=== PATIENT | male | born 1950 | race Caucasian/White ===

== ENCOUNTER → 2016-02-11 | Outpatient (REF) | payer MEDICARE, OTHER ==
[~2016-02-11] MED LIST: AMLO25TA PO; ATOR40TA PO; HYZA100T6 PO; PENI250T57 PO
== END ==
LOC: M LAB REF 16:42
PROVIDERS: ATTEND Surgery
DX: L03.319 Cellulitis of trunk, unspecified (principal); A49.02 Methicillin resistant Staphylococcus aureus infection, unspecified site

== ENCOUNTER → 2016-02-19 | Outpatient (CLI) | payer MEDICARE, BC, OTHER ==
[2016-02-19 12:45] LABS: MEAN CORPUSCULAR HEMOGLOBIN 29.9 pg (27.0-33.0); MEAN CORPUSCULAR HGB CONC 34.6 g/dl (32.0-36.5); MEAN CORPUSCULAR VOLUME 86.2 fl (80.0-96.0); RED CELL DISTRIBUTION WIDTH 12.8 % (11.5-14.5); WHITE BLOOD COUNT 8.2 K/mm3 (4.0-10.0)
--- NOTE | 2016-02-19 12:50 | REP ---
Clinical: Primary hypertension and cholesterolosis . Comparison: None . Technique: PA and lateral. Findings: The mediastinum and cardiac silhouette are normal. The lung fernandez demonstrate chronic-appearing changes without acute consolidation, effusion, or pneumothorax. The skeletal structures are intact and normal. Impression: Chronic-appearing changes. No acute cardiopulmonary process. Signed by Osmel Sandhu MD 02/19/2016 12:42 P
[2016-02-19 14:16] LABS: ALBUMIN 4.2 GM/DL (3.2-5.2); ALBUMIN/GLOBULIN RATIO 1.35 (1.00-1.93); ALKALINE PHOSPHATASE 115 U/L (45-117); ALT/SGPT 64 U/L (12-78); ANION GAP 8 MEQ/L (8-16); AST/SGOT 27 U/L (15-37); BILIRUBIN,TOTAL 1.2 MG/DL (0.2-1.0); BLOOD UREA NITROGEN 19 MG/DL (7-18); CALCIUM LEVEL 9.2 MG/DL (8.8-10.2); CARBON DIOXIDE LEVEL 31 MEQ/L (21-32); CHLORIDE LEVEL 102 MEQ/L (98-107); GLOMERULAR FILTRATION RATE > 60.0 (>49); GLUCOSE, FASTING 99 MG/DL (80-110); SODIUM LEVEL 141 MEQ/L (136-145); TOTAL PROTEIN 7.3 GM/DL (6.4-8.2)
--- NOTE | 2016-02-19 17:27 | ECGEPIP ---
Stationary ECG Study [facility] Test Date: 2016-02-19 Pat Name: RENEA SCHAEFER Department: Room: - Gender: M [employer] Lead: MYRA : 1950 Requested By: Efrain Jaramillo Order Number: [id number] Reading MD: Thomas Ulloa Measurements Intervals Hubbard Rate: 61 P: 62 MO: 156 QRS: -32 QRSD: 152 T: 29 QT: 450 QTc: 456 Interpretive Statements SINUS RHYTHM RIGHT BUNDLE BRANCH BLOCK Left anterior fascicular block Comparison tracing not on file Electronically Signed On 02-19-2016 17:26:39 EST by Thomas Ulloa
== END ==
LOC: M ADMPAT 10:37
PROVIDERS: ATTEND Orthopaedic Surgery
DX: M25.562 Pain in left knee (principal); Z79.899 Other long term (current) drug therapy

== ENCOUNTER 2016-03-04 05:36 | Inpatient (IN) | payer MEDICARE, BC, OTHER ==
[2016-02-19 11:13] VITALS: BP 201/105
--- NOTE | 2016-02-25 10:26 | CR ---
DATE OF CONSULTATION: 02/25/[address] ALLEN 65-year-old white male scheduled for knee replacement. I have been asked to evaluate him medically. He recently was treated for cellulitis/paronychia of the right great toe. That has resolved. He does have a history of obstructive sleep apnea (IAM) and will bring in his C-PAP. There is no history of known coronary artery disease and exercise tolerance is good for age and would be better if it was not for his left knee. No history of deep vein thrombosis (DVT) or pulmonary embolus. His electrocardiogram shows normal sinus rhythm, left atrial enlargement, right bundle branch block, and left anterior fascicular block, which I believe is new compared to our prior which was in December 2011. His chest x-ray shows chronic disease. His laboratory work is unremarkable. MEDICATIONS: - amlodipine 5 mg a day - atorvastatin 40 mg a day - losartan/hydrochlorothiazide 12/02 PAST MEDICAL HISTORY: 1. Prostatectomy for prostate cancer. 2. Surgery on Achilles tendon, right. 3. Cataract surgery. 4. Ptosis surgery. 5. Colonic polyps with tubular adenoma, last colonoscopy 2009 was clean. 6. IAM. 7. Hypertension. 8. Hyperlipidemia. 9. Conduction abnormalities on electrocardiogram as discussed. ALLERGIES: No known allergies. SOCIAL HISTORY: No alcohol or tobacco. FAMILY HISTORY: Negative. CARDIOPULMONARY REVIEW OF SYSTEMS: Negative. PHYSICAL EXAMINATION: Blood pressure 140/80. General Appearance: Moderately overweight. HEENT was unremarkable. Neck veins are flat. Carotids are normal. No bruits. No jugular venous distention (JVD). No cervical adenopathy. Heart: Regular. No murmurs. Chest is clear. Abdomen: Obese. Otherwise unremarkable. No hernias. Extremities are warm peripherally. No clubbing, cyanosis or edema. Infection great right toe is resolved.. IMPRESSION/PLAN: 1. Hypertension. Hold antihypertensives the morning of surgery. Resume postoperative when hemodynamically stable. 2. Hyperlipidemia. Resume statin postoperatively. 3. History of colonic polyps. Last colonoscopy clean 2009, previously with tubular adenoma. 4. Obstructive sleep apnea. He will bring in his C-PAP. 5. History of prostate cancer. 6. Conduction disease on electrocardiograms as discussed. The patient is medically optimized with recommendations as above.
--- NOTE | 2016-03-02 16:26 | HPE ---
DATE OF SCHEDULED ADMISSION: 03/04/2016 CHIEF COMPLAINT: Left knee pain. HISTORY OF PRESENT ILLNESS: This is a pleasant 65-year-old male with progressively worsening left knee pain and stiffness. He has failed to improve with conservative treatment. He has elected for surgery for his continued symptoms. He has pain with weightbearing activities and his activities of daily living. X-rays of his knee are notable for advanced osteoarthritis of the left knee joint. He has consented for a left total knee arthroplasty by Dr. Efrain Jaramillo. Medical optimization was performed by Dr. Wood. ALLERGIES: None. CURRENT MEDICATIONS: - losartan/HCTZ 100/25 mg once a day PAST MEDICAL HISTORY: Hypertension. PAST SURGICAL HISTORY: Achilles tendon repair in 1972, cataract removal in 2012, arthroscopic surgery to both knees and prostatectomy in 2011. SOCIAL HISTORY: This gentleman is retired. He does not smoke and occasionally has an alcoholic beverage. FAMILY HISTORY: Noncontributory. REVIEW OF SYSTEMS: This patient denies chest pain, heart palpitations, cough, wheezing, difficulty breathing or shortness of breath. He denies abdominal pain, nausea, vomiting, diarrhea or constipation. He denies recent upper respiratory infection or urinary tract infection symptoms. He does complain of persistent pain in his left knee and pain with weightbearing activities in his left knee. PHYSICAL EXAMINATION General: He is well-nourished, well-developed, in no acute distress, adult male patient. He walks with a moderate limp favoring the left lower extremity. He is not using assistive devices. Vital signs: He is 6 feet 3 inches tall, weighs 259 pounds with a temperature of 97.7, blood pressure 166/80, pulse of 64 and respirations of 12. Neck was supple without adenopathy or jugular venous distension. There were no carotid bruits appreciated upon auscultation. Lungs were clear to auscultation without rales or wheeze throughout. Heart: Regular rate and rhythm. Abdomen: Bowel sounds were present. Extremities: Examination of the knee revealed intact skin. He had decreased range of motion secondary to pain and stiffness. The limb is neurovascularly intact. LABORATORY DATA: Chest x-ray showed chronic appearing changes. No acute cardiopulmonary disease processes. EKG showed sinus rhythm at 61 beats per minute. UA was within normal limits with a specific gravity of 1.015. Pro-time 13.3, INR 1.00. CBC was within normal limits. Sedimentation rate was 3, glucose 99, BUN 19, creatinine 1.1. Sodium 141, potassium 4.0. Urine culture showed no growth. Nasal and sinus culture showed normal charis. IMPRESSION: Symptomatic osteoarthritis of the left knee joint. PLAN: Consented for a left total knee arthroplasty by Dr. Efrain Jaramillo.
[~2016-03-04] VITALS: Ht 190.5 cm; Wt 113.0 kg
[2016-03-04] VITALS (7 sets, daily range): BP systolic 139–170; BP diastolic 72–88
[2016-03-04] MEDS ORDERED: LR 1,000 ML IV SCH ×2 (06:00→09:30)
[2016-03-04] MEDS ORDERED: COUM10TA PO (06:23)
[2016-03-04] MEDS ORDERED: MIDAZOLAM INJ 2 MG/2 ML VIAL (J2250) As Ordered ONE ×2 (06:42→08:07)
[2016-03-04] MEDS ORDERED: fentaNYL 100 MCG/2 ML INJECTION (J3010) As Ordered ONE ×2 (06:42→07:07)
[2016-03-04] MEDS ORDERED: BUPIVACAINE HCL 0.5% 10 ML VIAL As Ordered ONE (07:06)
[2016-03-04] MEDS ORDERED: TRANEXAMIC ACID 100 MG/ML 10ML VIAL As Ordered ONE (07:06)
[2016-03-04] MEDS ORDERED: EPINEPHrine INJ 1 MG/ML 1ML VIAL/AMP As Ordered ONE (07:07)
[2016-03-04] MEDS ORDERED: ceFAZolin 1GM INJ (J0690) As Ordered ONE (07:07)
[2016-03-04] MEDS ORDERED: BUPIVACAINE HCL 0.25% 30 ML VIAL As Ordered ONE (07:07)
[2016-03-04] MEDS: fentaNYL 100 MCG/2 ML INJECTION (J3010) IV PRN ×2 (07:21→07:29)
[2016-03-04] MEDS: MIDAZOLAM INJ 2 MG/2 ML VIAL (J2250) IV PRN ×2 (07:21→07:25)
[2016-03-04] MEDS ORDERED: PROPOFOL 200 MG/20 ML VIAL As Ordered ONE ×2 (08:08→09:01)
[2016-03-04] MEDS ORDERED: LIDOCAINE 2% INJ 100 MG/5 ML SDV (FOR ANES.) As Ordered ONE (08:08)
[2016-03-04] MEDS ORDERED: ONDANSETRON 4MG/2ML VIAL (J2405) As Ordered ONE (08:08)
[2016-03-04] MEDS ORDERED: ceFAZolin 1GM INJ (J0690) IR ONE (08:12)
[2016-03-04] MEDS ORDERED: EPINEPHrine INJ 1 MG/ML 1ML VIAL/AMP XX ONE (08:12)
[2016-03-04] MEDS ORDERED: BUPIVACAINE HCL 0.5% 10 ML VIAL XX ONE (08:12)
[2016-03-04] MEDS ORDERED: TRANEXAMIC ACID 100 MG/ML 10ML VIAL XX ONE (08:12)
[2016-03-04] MEDS ORDERED: fentaNYL 100 MCG/2 ML INJECTION (J3010) XX ONE (08:12)
[2016-03-04] MEDS ORDERED: BUPIVACAINE HCL 0.25% 30 ML VIAL XX ONE (08:12)
[2016-03-04] MEDS: MIRALAX *UNIT DOSE* 17GM PACKET PO SCH (09:00)
[2016-03-04] MEDS: SENOKOT S TAB PO SCH ×2 (09:00→20:37)
[2016-03-04] MEDS ORDERED: ePHEDrine SULFATE 25 MG/5 ML(5MG/ML) SYRINGE As Ordered ONE (09:01)
[2016-03-04] MEDS ORDERED: MORPHINE PCA 1MG/ML 100ML CADD As Ordered ONE (09:28)
[2016-03-04] MEDS ORDERED: PERCOCET 5MG/325MG TAB PO PRN (09:30)
[2016-03-04] MEDS ORDERED: NALOXONE INJ 0.4 MG/1 ML VIAL (J2310) IV PRN (09:30)
[2016-03-04] MEDS ORDERED: EPIDURAL/PCA KEYS XX PRN (09:30)
[2016-03-04] MEDS ORDERED: NALBUPHINE HCL 10 MG/ML AMP (J2300) IV PRN (09:30)
[2016-03-04] MEDS ORDERED: diphenhydrAMINE INJ 50MG/ML VIAL (J1200) IV PRN (09:30)
[2016-03-04] MEDS ORDERED: fentaNYL 100 MCG/2 ML INJECTION (J3010) IV PRN (09:30)
[2016-03-04] MEDS ORDERED: METOCLOPRAMIDE INJ 10MG/2ML VIAL (J2765) IV PRN (09:30)
[2016-03-04] MEDS ORDERED: MORPHINE PCA 1MG/ML 100ML CADD IV PRN (09:30)
[2016-03-04] MEDS ORDERED: ONDANSETRON 4MG/2ML VIAL (J2405) IV PRN ×2 (09:30)
[2016-03-04] MEDS ORDERED: PATIENT IS CURRENTLY ON AN ON-Q PAIN BUSTER PAIN RELIEF SYSTEM XX SCH (09:45)
[2016-03-04] MEDS ORDERED: ACETAMINOPHEN TAB 650MG DOSE (2X325MG) PO PRN (09:45)
[2016-03-04] MEDS ORDERED: FLEET ENEMA PR PRN (09:45)
--- NOTE | 2016-03-04 10:15 | RO ---
DATE OF PROCEDURE: 03/04/2016 PREOPERATIVE DIAGNOSIS: Left knee varus osteoarthritis. POSTOPERATIVE DIAGNOSIS: Left knee varus osteoarthritis. OPERATION PERFORMED: Left total knee replacement. SURGEON: Efrain Jaramillo MD LAN/WAN ENGINEER: Scott Gomez PA-C ANESTHESIA: HISTORY: A gentleman who has had increasing deformity and pain in his left knee presents for elective surgery. FINDINGS AT SURGERY: Severe varus osteoarthritis, tricompartmental. The sizing was a #5 PFC femur, a #5 tibia, a 10 mm spacer, a 38 mm button. TOURNIQUET TIME: 64 minutes. No intraoperative complications noted. Mr. Gomez assisted by retracting vital structures and manipulating the leg in order to expedite the surgery. DESCRIPTION OF PROCEDURE: After adequate spinal anesthesia, a Bryan catheter placed, intravenous (IV) antibiotics were administered. The patient's left leg was prepped and draped. Tourniquet was inflated to 300 mmHg. A straight midline incision made. Median parapatellar arthrotomy was fashioned. The bleeding points were controlled with electrocautery. The dissection revealed the femur and the tibia. The intermedullary canal was opened, and the 5-degrees valgus 10 mm cut made by Mr. Gomez under my supervision. Following this, the rest of the femoral sizing cuts were made. Osteophytes were removed. The posterior cruciate ligament (PCL) was recessed, and menisci resected, and the tibia exposed. The cut was made 10 mm off the good side. Osteophytes were removed. The hard bone on the tibia was perforated with a drill 0.2 mm in order to improve cement fixation. Then, posterior osteophytes which were quite large, were removed. The sizing guides were utilized for a 10 mm spacer. The femur was applied. The tibial applied. Rotation was checked and marked. The patellar tracking was marked, and the patella was resectioned. The trials were then put through a range of motion, found to be stable, and they were then removed. The femur was drilled. The tibia was drilled, and Mr. Gomez excused to the back table to mix methylmethacrylate while I thoroughly irrigated the bone. It was then dried and presented for implantation. The permanent components were implanted, and the cement was removed that was excess. The knee was then reduced in full extension while the patella was clamped. During this time, the knee was thoroughly irrigated. The PainBuster catheter was threaded into the knee superolaterally. The tranexamic acid (TXA) was applied to the wound for postoperative control of bleeding. The median parapatellar arthrotomy was closed with heavy polydioxanone suture (PDS) suture. The tenosynovium was sutured with 2-0 PDS, as was the subcutaneous. Following this, the tourniquet was deflated. A dry dressing was applied after the skin was stapled. The PainBuster catheter was primed with 10 mL of local anesthetic, and the patient transferred to the recovery room, breathing spontaneously, having tolerated the procedure well.
[2016-03-04] MEDS: D5W/0.45% SODIUM CHLORIDE 1,000 ML IV SCH ×3 (12:00→20:37)
--- NOTE | 2016-03-04 15:17 | CR.PDOC ---
[facility] Consultation Consultation DATE OF CONSULTATION: 03/04/16 PRIMARY CARE PHYSICIAN: Dr. Wood. REFERRING PROVIDER: Dr Jaramillo ATTENDING PHYSICIAN: Dr. Jones REASON FOR CONSULTATION/CHIEF COMPLAINT: Medical management HISTORY OF PRESENT ILLNESS: 65-year-old male underlying history of HTN, HLD, IAM on CPAP, with progressively worsening left knee pain and stiffness. He has failed to improve with conservative treatment. He has elected for surgery for his continued symptoms. He has pain with weightbearing activities and his activities of daily living. X-rays of his knee are notable for advanced osteoarthritis of the left knee joint. He has consented for a left total knee arthroplasty by Dr. Efrain Jaramillo. Medical optimization was performed by Dr. Wood. S/P surgery, admitted under Orthopedic service, medicine consulted for medical management. Denied CP, SOB, minimum surgical pain. ALLERGIES: NKDA HOME MEDICATIONS: Please see below. PAST MEDICAL HISTORY: 1. HTN 2. HLD 3. IAM PAST SURGICAL HISTORY: Achilles tendon repair in 1972, cataract removal in 2012, arthroscopic surgery to both knees and prostatectomy in 2011.Prostatectomy for prostate cancer FAMILY HISTORY: noncontributory SOCIAL HISTORY: This gentleman is retired. He does not smoke and occasionally has an alcoholic beverage, once a month. no recreational drug us REVIEW OF SYSTEMS: CONSTITUTIONAL: no fever, chill or weight loss HEENT: no headache, vision change or hearing change CARDIOVASCULAR: no chest pain, no palpitation RESPIRATORY: no sob, or cough GENITOURINARY: no dysuria or hematuria GASTROINTESTINAL: no diarrhea or constipation, no v/n SKIN: no new rash NEUROLOGICAL: no confusion, no weakness PSYCHIATRIC: denied depression or anxiety ENDOCRINE: no heat or cold intolerance HEMATOLOGIC/LYMPHATIC: no bleeding disorder ALLERGIC/IMMUNOLOGIC: neg. PHYSICAL EXAMINATION: VITAL SIGNS: Please see below. GENERAL APPEARANCE: NAD, aaox3 HEENT: NC/AT RESPIRATORY: b/l CTA, no w/r/r CARDIOVASCULAR: RRR nl s1s2, no murmur detected ABDOMEN: soft nt/nd +bs EXTREMITIES: no edema, surgical area c/d/i, dp/pt 2+ b/l LABORATORY DATA: Please see below. ASSESSMENT/PLAN: 65-year-old male underlying history of HTN, HLD, IAM on CPAP admitted under orthopedic service for LTK replacement 1. LTK replacement s/p surgery, perioperative management as per ortho, pain med , bowel regiment, DVT ppx and PT, as per ortho, patient on Coumadin for DVT ppx 2. HTN, continue home med, dose adjusted, f/u BMP and mag 3. IAM, home cpap and IAM protocol 4. HLD continue home med DVT ppx on coumadin Dispo planning as per primary team patient placed on Dr Raymond's list Vital Signs/I&O Vital Signs Date Time Temp Pulse Resp B/P Pulse Ox O2 Delivery O2 Flow Rate FiO2 03/04/16 11:16 84 94 03/04/16 11:15 128/67 03/04/16 10:30 97.2 18 Nasal Cannula 2 Allergies Coded Allergies: No Known Allergies (Unverified , 02/19/16) Home Medications Scheduled (Hyzaar 100-25 mg) 1 Tab Tab 1 TAB PO DAILY (Reported) Amlodipine Besylate (Norvasc) 2.5 Mg Tab 5 MG PO DAILY (Reported) Atorvastatin Calcium (Atorvastatin Calcium) 40 Mg Tab 40 MG PO DAILY (Reported ) Miscellaneous Medications Warfarin Sod (Coumadin) 10 Mg Tab 10 MG PO (Reported) LESLIE JONES MD Mar 04, 2016 15:17
[2016-03-04] MEDS ORDERED: WARFARIN SOD 5 MG TAB PO SCH (17:00)
--- NOTE | 2016-03-04 17:11 | CR ---
DATE OF CONSULTATION: 03/04/2016 REASON FOR CONSULTATION: Medical management. PRIMARY CARE PROVIDER: Dr. Wood DICTATION ENDS HERE please refer to the actual note MTDD
[2016-03-05] VITALS: BP 158/85
[2016-03-05 04:00] VITALS: BP 163/83
[2016-03-05] MEDS ORDERED: PERCOCET 5MG/325MG TAB PO PRN (06:30)
[2016-03-05] MEDS ORDERED: ONDANSETRON 4 MG TAB (S0181) PO PRN (06:30)
[2016-03-05 06:57] LABS: MEAN CORPUSCULAR HEMOGLOBIN 29.9 pg (27.0-33.0); MEAN CORPUSCULAR HGB CONC 34.3 g/dl (32.0-36.5); MEAN CORPUSCULAR VOLUME 87.3 fl (80.0-96.0); RED CELL DISTRIBUTION WIDTH 13.5 % (11.5-14.5)
[2016-03-05 07:06] LABS: ANION GAP 6 MEQ/L (8-16); BLOOD UREA NITROGEN 12 MG/DL (7-18); CALCIUM LEVEL 8.4 MG/DL (8.8-10.2); CARBON DIOXIDE LEVEL 32 MEQ/L (21-32); CHLORIDE LEVEL 100 MEQ/L (98-107); CREATININE FOR GFR 1.06 MG/DL (0.70-1.30); GLOMERULAR FILTRATION RATE > 60.0 (>49); GLUCOSE, FASTING 122 MG/DL (80-110); MAGNESIUM LEVEL 1.9 MG/DL (1.8-2.4); POTASSIUM SERUM 3.6 MEQ/L (3.5-5.1); SODIUM LEVEL 138 MEQ/L (136-145)
[2016-03-05 07:07] LABS: INR 1.09
[2016-03-05] MEDS ORDERED: POTASSIUM CHLORIDE 10 MEQ SR TABLET PO ONE (07:15)
[2016-03-05] MEDS: SENOKOT S TAB PO SCH ×2 (07:59→20:02)
[2016-03-05] MEDS: MOM 30ML SUSPENSION UDC PO SCH (07:59)
[2016-03-05] MEDS: ATORVASTATIN 20 MG TAB PO SCH (08:00)
[2016-03-05] MEDS: amLODIPine 5 MG TAB PO SCH (08:01)
[2016-03-05] MEDS: MIRALAX *UNIT DOSE* 17GM PACKET PO SCH (08:01)
[2016-03-05] MEDS: hydroCHLOROthiazide 25 MG TAB PO SCH (08:02)
[2016-03-05] MEDS ORDERED: LOSARTAN 50 MG TAB PO SCH (09:00)
--- NOTE | 2016-03-05 09:22 | REP ---
LEFT KNEE SERIES: Three views. HISTORY: Check placement. Postop. FINDINGS: Left knee arthroplasty components are seen well aligned with respect to each other. There is fullness in the region of the suprapatellar bursa. Postoperative swelling and emphysema changes are seen in the soft tissues. Anterior skin lara and a pain control catheter are noted. IMPRESSION: Status post left knee arthroplasty. Signed by Abdi Huerta MD 03/05/2016 09:27 A
[2016-03-05 14:00] VITALS: BP 165/79
[2016-03-05] MEDS: PERCOCET 5MG/325MG TAB PO PRN ×2 (14:44→20:03)
[2016-03-05] MEDS ORDERED: WARFARIN SOD 5 MG TAB PO ONE (17:00)
--- NOTE | 2016-03-05 18:27 | IPN ---
DATE: 03/05/2016 SUBJECTIVE: Patient seen and examined. No acute events overnight. Denies any chest pain, pressure, or discomfort. Denies any fevers or chills. Reported surgical pain about 4/10, within tolerable limits. VITAL SIGNS: Temperature 99.6, pulse 100, respirations 17, blood pressure 165/79, pulse oximetry 93% on two liters nasal cannula. LABORATORY DATA: WBC 13, hemoglobin and hematocrit 14.4 over 41.9, platelets 193. Chemistry: Sodium 138, potassium 3.6, chloride 100, bicarbonate 32, BUN 12, creatinine 1.06, magnesium 1.9. PHYSICAL EXAMINATION: GENERAL: Patient alert and oriented times three, in no acute distress. HEENT: Normocephalic, atraumatic. PULMONARY: Bilaterally clear to auscultation. CARDIAC: Regular rate and rhythm. Normal S1, S2. ABDOMEN: Soft, nontender. Hypoactive bowel sounds. EXTREMITIES: No edema bilateral lower extremities. Surgical site clean, dry and intact. Dorsalis pedis (DP) and posterior tibial (PT) pulses 2+ bilaterally. ASSESSMENT AND PLAN: This is a 65-year-old male patient with underlying medical history of hypertension, dyslipidemia, obstructive sleep apnea on continuous positive airway pressure (CPAP), admitted under orthopedic service for left total knee replacement surgery. 1. Left total knee replacement status post surgery. Perioperative management, pain regimen, deep venous thrombosis (DVT) prophylaxis. Physical therapy as per orthopedic team. Bowel regimen added. Patient on Coumadin for DVT prophylaxis. 2. Hypertension. Continue home medication. Dosage has been adjusted. Followup basic metabolic panel (BMP) and magnesium. 3. Obstructive sleep apnea (IAM) protocol. Continue home CPAP. 4. Dyslipidemia. Continue home medications. 5. DVT prophylaxis. Patient on Coumadin. DISPOSITION: Pending primary team.
[2016-03-05 22:00] VITALS: BP 160/74
[2016-03-06] MEDS: PERCOCET 5MG/325MG TAB PO PRN ×2 (01:53→12:16)
[2016-03-06 06:00] VITALS: BP 173/83
[2016-03-06 07:02] LABS: ANION GAP 8 MEQ/L (8-16); BLOOD UREA NITROGEN 17 MG/DL (7-18); CALCIUM LEVEL 8.8 MG/DL (8.8-10.2); CARBON DIOXIDE LEVEL 29 MEQ/L (21-32); CHLORIDE LEVEL 104 MEQ/L (98-107); CREATININE FOR GFR 1.01 MG/DL (0.70-1.30); GLOMERULAR FILTRATION RATE > 60.0 (>49); GLUCOSE, FASTING 126 MG/DL (80-110); MAGNESIUM LEVEL 2.1 MG/DL (1.8-2.4); POTASSIUM SERUM 3.8 MEQ/L (3.5-5.1); SODIUM LEVEL 141 MEQ/L (136-145)
[2016-03-06 07:08] LABS: INR 1.12
[2016-03-06 07:14] LABS: MEAN CORPUSCULAR HEMOGLOBIN 29.3 pg (27.0-33.0); MEAN CORPUSCULAR HGB CONC 34.4 g/dl (32.0-36.5); MEAN CORPUSCULAR VOLUME 85.2 fl (80.0-96.0); RED CELL DISTRIBUTION WIDTH 13.5 % (11.5-14.5); WHITE BLOOD COUNT 12.9 K/mm3 (4.0-10.0)
[2016-03-06] MEDS ORDERED: PERC5TAB6 PO (07:41)
[2016-03-06] MEDS ORDERED: COUM2.5T11 PO (07:41)
[2016-03-06] MEDS: MOM 30ML SUSPENSION UDC PO SCH (07:57)
[2016-03-06] MEDS: MIRALAX *UNIT DOSE* 17GM PACKET PO SCH (07:57)
[2016-03-06] MEDS: SENOKOT S TAB PO SCH (07:57)
[2016-03-06] MEDS: hydroCHLOROthiazide 25 MG TAB PO SCH (07:58)
[2016-03-06] MEDS: ATORVASTATIN 20 MG TAB PO SCH (07:58)
[2016-03-06] MEDS: amLODIPine 5 MG TAB PO SCH (07:59)
[2016-03-06] MEDS ORDERED: MAGNESIUM CITRATE 300 ML BTL PO ONE (08:00)
[2016-03-06] MEDS ORDERED: ENOXAPARIN 40 MG/0.4 ML SYRINGE (J1650) SC ONE (08:00)
[2016-03-06] MEDS ORDERED: LOSARTAN 50 MG TAB PO SCH (09:00)
--- NOTE | 2016-03-06 09:48 | REP ---
Chest one-view HISTORY: Fever Comparison: 02/19/2016 Linear density is present in the right lower lobe consistent with atelectasis or infiltrate. . The left lung is clear. . The heart is normal in size. The pulmonary vasculature is normal in appearance. Impression: Right lower lobe atelectasis or infiltrate. Signed by Miles Ma MD 03/06/2016 09:39 A
[2016-03-06] MEDS ORDERED: MAGNESIUM CITRATE 300 ML BTL PO PRN (10:00)
[2016-03-06 12:00] VITALS: BP 185/90
[2016-03-06] MEDS ORDERED: **hydrALAZINE** 10 MG TAB PO SCH ×2 (12:00→16:00)
[2016-03-06 12:14] VITALS: BP 185/90
[2016-03-06] MEDS ORDERED: BACITAB3 PO (12:30)
[2016-03-06] MEDS ORDERED: AMLO10TA PO (12:30)
[2016-03-06] MEDS ORDERED: AVEL1TAB PO (12:30)
[2016-03-06] MEDS ORDERED: MOXIFLOXACIN 400 MG TAB PO ONE (12:30)
[2016-03-06 13:28] VITALS: BP 170/80
[2016-03-06 14:00] VITALS: BP 165/80
[2016-03-06] MEDS ORDERED: HYDR10TAB PO (16:04)
--- NOTE | 2016-03-07 00:22 | IPN ---
DATE: 03/06/2016 I was called to the room due to having difficulties getting the PainBuster catheter out. I evaluated the patient. With gentle traction and elevation of the knee, then the catheter came out easily with no difficulty. There was no bleeding. The tip was verified. I also verified with his nurse, Kami, that, yes, the catheter was completely intact and the tip was intact. The patient had no difficulties. He will followup with his normal postoperative care. His wound was without signs of infection.
== END 2016-03-06 17:00 | disposition home health service (06) | DRG 470 ==
LOC: EEVIPCON 05:36 → M OR 05:36 → M MS5PR 11:25
PROVIDERS: ADMIT Orthopaedic Surgery; ATTEND Orthopaedic Surgery
PROC: 0SRD0J9 Replacement of Left Knee Joint with Synthetic Substitute, Cemented, Open Approach (ICD-10-PCS; principal; 2016-03-04 07:30)
DX: M17.12 Unilateral primary osteoarthritis, left knee (principal); I10 Essential (primary) hypertension; R26.9 Unspecified abnormalities of gait and mobility; G47.33 Obstructive sleep apnea (adult) (pediatric); Z85.46 Personal history of malignant neoplasm of prostate; E78.5 Hyperlipidemia, unspecified; E66.9 Obesity, unspecified; Z86.010 Personal history of colon polyps; Z68.31 Body mass index [BMI] 31.0-31.9, adult

== ENCOUNTER → 2016-03-10 | Outpatient (REF) | payer MEDICARE, BC, OTHER ==
[~2016-03-10] MED LIST changes: +AMLO10TA PO; +AVEL1TAB PO; +BACITAB3 PO; +COUM10TA PO; +COUM2.5T11 PO; +HYDR10TAB PO; +PERC5TAB6 PO
[2016-03-10 15:43] LABS: INR 1.41
== END ==
LOC: M SHH 15:10 → M LAB REF 15:10
PROVIDERS: ATTEND Nurse Practitioner Family
DX: Z79.01 Long term (current) use of anticoagulants (principal)

== ENCOUNTER → 2016-03-16 | Outpatient (REF) | payer MEDICARE, BC, OTHER ==
[2016-03-16 15:23] LABS: INR 1.85
== END ==
LOC: M SHH 14:58
PROVIDERS: ATTEND Orthopaedic Surgery

== ENCOUNTER → 2016-03-19 | Outpatient (REF) | payer MEDICARE, OTHER ==
[2016-03-19 12:42] LABS: INR 2.27
== END ==
LOC: M SHH 12:07
PROVIDERS: ATTEND Nurse Practitioner Family
DX: Z79.01 Long term (current) use of anticoagulants (principal)

== ENCOUNTER → 2016-03-23 | Outpatient (REF) | payer MEDICARE, OTHER ==
[2016-03-23 15:30] LABS: INR 2.41
== END | disposition home or self-care (01) ==
LOC: M SHH 15:04
PROVIDERS: ATTEND Nurse Practitioner Family
DX: Z51.81 Encounter for therapeutic drug level monitoring (principal); Z79.01 Long term (current) use of anticoagulants

== ENCOUNTER → 2016-03-26 | Outpatient (REF) | payer MEDICARE, OTHER ==
[2016-03-26 15:13] LABS: INR 1.97
== END ==
LOC: M SHH 14:46
PROVIDERS: ATTEND Nurse Practitioner Family
DX: Z79.01 Long term (current) use of anticoagulants (principal)

== ENCOUNTER → 2016-03-30 | Outpatient (REF) | payer MEDICARE, OTHER ==
[2016-03-30 15:51] LABS: INR 1.7
== END ==
LOC: M SHH 14:37
PROVIDERS: ATTEND Nurse Practitioner Family
DX: Z79.01 Long term (current) use of anticoagulants (principal)

== ENCOUNTER → 2016-04-02 | Outpatient (REF) | payer MEDICARE, OTHER ==
[2016-04-02 11:24] LABS: INR 1.79
== END ==
LOC: M SHH 11:06
PROVIDERS: ATTEND Nurse Practitioner Family
DX: Z79.01 Long term (current) use of anticoagulants (principal)

== ENCOUNTER → 2016-09-02 | Outpatient (CLI) | payer MEDICARE, BC, OTHER ==
[~2016-09-02] MED LIST changes: -ATOR40TA PO; +ATOR40TA75 PO; -AVEL1TAB PO; +AVEL1TAB3 PO; +BACITAB PO; -BACITAB3 PO; -COUM2.5T11 PO; +COUM2.5T17 PO; +PERC5TAB12 PO; -PERC5TAB6 PO
== END ==
LOC: M LAB 15:03
PROVIDERS: ATTEND Urology
DX: Z85.46 Personal history of malignant neoplasm of prostate (principal)

== ENCOUNTER → 2017-02-22 | Outpatient (CLI) | payer MEDICARE, BC, OTHER ==
[2017-02-22 11:11] LABS: HEMATOCRIT 47.1 % (42.0-52.0); HEMOGLOBIN 16.2 g/dl (14.0-18.0); MEAN CORPUSCULAR HEMOGLOBIN 29.7 pg (27.0-33.0); MEAN CORPUSCULAR HGB CONC 34.4 g/dl (32.0-36.5); MEAN CORPUSCULAR VOLUME 86.3 fl (80.0-96.0); PLATELET COUNT, AUTOMATED 252 10^3/uL (150-450); RED BLOOD COUNT 5.46 10^6/uL (4.30-6.10); RED CELL DISTRIBUTION WIDTH 12.9 % (11.5-14.5); WHITE BLOOD COUNT 7.4 10^3/uL (4.0-10.0)
[2017-02-22 11:14] LABS: APPEARANCE, URINE CLEAR (CLEAR); BACTERIA, URINE AUTO NEGATIVE (NEGATIVE); BILIRUBIN, URINE AUTO NEGATIVE (NEGATIVE); BLOOD, URINE BLOOD NEGATIVE (NEGATIVE); COLOR, URINE YELLOW (YELLOW); GLUCOSE, URINE (UA) AUTO NEGATIVE (NEGATIVE); KETONE, URINE AUTO NEGATIVE (NEGATIVE); LEUKOCYTE ESTERASE, URINE AUTO NEGATIVE (NEGATIVE); NITRITE, URINE AUTO NEGATIVE (NEGATIVE); PROTEIN, URINE AUTO NEGATIVE (NEGATIVE); RBC, URINE AUTO 2 /HPF (0-3); SPECIFIC GRAVITY URINE AUTO 1.018 (1.002-1.035); SQUAMOUS EPITHELIAL CELL UR AU 0 /HPF (0-6); UROBILINOGEN, URINE AUTO 0.2 mg/dL (0.0-2.0); WBC, URINE AUTO 0 /HPF (0-3)
[2017-02-22 11:27] LABS: INR 0.94; PROTHROMBIN TIME 12.6 SECONDS (12.4-14.5)
[2017-02-22 11:34] LABS: ALBUMIN 4.1 GM/DL (3.2-5.2); ALBUMIN/GLOBULIN RATIO 1.32 (1.00-1.93); ALKALINE PHOSPHATASE 125 U/L (45-117); ALT/SGPT 31 U/L (12-78); ANION GAP 6 MEQ/L (8-16); AST/SGOT 17 U/L (7-37); BILIRUBIN,TOTAL 0.8 MG/DL (0.2-1.0); BLOOD UREA NITROGEN 18 MG/DL (7-18); CALCIUM LEVEL 9.2 MG/DL (8.8-10.2); CARBON DIOXIDE LEVEL 32 MEQ/L (21-32); CHLORIDE LEVEL 107 MEQ/L (98-107); GLOMERULAR FILTRATION RATE > 60.0 (>49); GLUCOSE, FASTING 95 MG/DL (80-110); POTASSIUM SERUM 4.1 MEQ/L (3.5-5.1); SODIUM LEVEL 145 MEQ/L (136-145); TOTAL PROTEIN 7.2 GM/DL (6.4-8.2)
[2017-02-22 12:07] LABS: ERYTHROCYTE SEDIMENTATION RATE 4 mm/hr (0-20)
== END ==
LOC: M ADMPAT 09:12
DX: M17.11 Unilateral primary osteoarthritis, right knee (principal); Z79.01 Long term (current) use of anticoagulants
CPT/HCPCS: 71046

== ENCOUNTER 2017-03-08 05:59 | Inpatient (IN) | payer MEDICARE, BC, OTHER ==
[2017-03-08] MEDS: ceFAZolin 1GM INJ (J0690 PER 500MG) As Ordered (06:03)
[2017-03-08] MEDS: LR 1,000 ML IV ×4 (06:15→19:49)
[2017-03-08] MEDS: VANCOMYCIN HCL 1,000 MG, VIAL MATE ADAPTER 1 EACH in D5W 250 ML IV ×2 (06:56→18:41)
[2017-03-08] MEDS ORDERED: fentaNYL 100 MCG/2 ML INJECTION (J3010) As Ordered (07:05)
[2017-03-08] MEDS ORDERED: MIDAZOLAM INJ 2 MG/2 ML VIAL (J2250) As Ordered ×2 (07:05→07:14)
[2017-03-08] MEDS: fentaNYL 100 MCG/2 ML INJECTION (J3010) IV ×2 (07:19→07:21)
[2017-03-08] MEDS: MIDAZOLAM INJ 2 MG/2 ML VIAL (J2250) IV (07:19)
[2017-03-08] MEDS: TRANEXAMIC ACID 100 MG/ML 10ML VIAL As Ordered (08:16)
[2017-03-08] MEDS: EPINEPHrine INJ 1 MG/ML 1ML AMP As Ordered (08:17)
[2017-03-08] MEDS ORDERED: PROPOFOL 200 MG/20 ML VIAL As Ordered ×3 (08:21→08:45)
[2017-03-08] MEDS: BUPIVACAINE LIPOSOME/PF 1.3% 20 ML VIAL (13.3MG/ML)(EXPAREL) As Ordered (09:06)
[2017-03-08] MEDS: BUPIVACAINE HCL 0.25% 10 ML VIAL As Ordered ×2 (09:07→09:09)
[2017-03-08] MEDS ORDERED: MORPHINE 1MG/ML IN 0.9% NACL 100ML IV BAG As Ordered ×2 (10:05→10:15)
[2017-03-08] MEDS ORDERED: METOCLOPRAMIDE INJ 10MG/2ML VIAL (J2765) IV (10:30)
[2017-03-08] MEDS ORDERED: MORPHINE 10 MG/ML 1ML VIAL IV (10:30)
[2017-03-08] MEDS ORDERED: NALOXONE INJ 0.4 MG/1 ML VIAL (J2310) IV (10:30)
[2017-03-08] MEDS: MORPHINE 1MG/ML IN 0.9% NACL 100ML IV BAG IV (10:30)
[2017-03-08] MEDS ORDERED: diphenhydrAMINE INJ 50MG/ML VIAL (J1200) IV (10:30)
[2017-03-08] MEDS ORDERED: PERCOCET 5MG/325MG TAB PO (10:30)
[2017-03-08] MEDS ORDERED: ACETAMINOPHEN TAB 650MG DOSE (2X325MG) PO (10:30)
[2017-03-08] MEDS ORDERED: NALBUPHINE HCL 10 MG/ML AMP (J2300) IV (10:30)
[2017-03-08] MEDS ORDERED: FLEET ENEMA PR (10:30)
[2017-03-08] MEDS ORDERED: ONDANSETRON 4MG/2ML VIAL (J2405) IV ×2 (10:30)
[2017-03-08] MEDS ORDERED: EPIDURAL/PCA KEYS XX (10:30)
[2017-03-08] MEDS ORDERED: fentaNYL 100 MCG/2 ML INJECTION (J3010) IV (10:30)
[2017-03-08] MEDS: WARFARIN SOD 5 MG TAB PO (17:08)
[2017-03-09] MEDS ORDERED: ONDANSETRON 4 MG TAB (S0181) PO (06:30)
[2017-03-09] MEDS ORDERED: PERCOCET 5MG/325MG TAB PO (06:30)
[2017-03-09 07:05] LABS: HEMATOCRIT 42.4 % (42.0-52.0); HEMOGLOBIN 14.5 g/dl (14.0-18.0); MEAN CORPUSCULAR HGB CONC 34.2 g/dl (32.0-36.5); MEAN CORPUSCULAR VOLUME 87.6 fl (80.0-96.0); PLATELET COUNT, AUTOMATED 223 10^3/uL (150-450); RED BLOOD COUNT 4.84 10^6/uL (4.30-6.10); RED CELL DISTRIBUTION WIDTH 12.8 % (11.5-14.5)
[2017-03-09 07:12] LABS: INR 1.12; PROTHROMBIN TIME 14.6 SECONDS (12.4-14.5)
[2017-03-09 07:16] LABS: ANION GAP 5 MEQ/L (8-16); BLOOD UREA NITROGEN 14 MG/DL (7-18); CALCIUM LEVEL 8.3 MG/DL (8.8-10.2); CARBON DIOXIDE LEVEL 30 MEQ/L (21-32); CHLORIDE LEVEL 104 MEQ/L (98-107); CREATININE FOR GFR 1.02 MG/DL (0.70-1.30); GLOMERULAR FILTRATION RATE > 60.0 (>49); GLUCOSE, FASTING 134 MG/DL (70-100); POTASSIUM SERUM 3.7 MEQ/L (3.5-5.1); SODIUM LEVEL 139 MEQ/L (136-145)
[2017-03-09] MEDS: PERCOCET 5MG/325MG TAB PO ×3 (08:50→20:26)
[2017-03-09] MEDS: MIRALAX *UNIT DOSE* 17GM PACKET PO (09:00)
[2017-03-09] MEDS: MOM 30ML SUSPENSION UDC PO (12:55)
[2017-03-09] MEDS: ATORVASTATIN 20 MG TAB PO (12:55)
[2017-03-09] MEDS: LOSARTAN 50 MG TAB PO (12:55)
[2017-03-09] MEDS: SENOKOT S TAB PO ×2 (12:55→20:25)
[2017-03-09] MEDS: hydroCHLOROthiazide 25 MG TAB PO (12:56)
[2017-03-09] MEDS: amLODIPine 5 MG TAB PO (12:56)
[2017-03-09] MEDS: WARFARIN SOD 7.5 MG TAB PO (16:18)
[2017-03-09] MEDS ORDERED: WARFARIN SOD 5 MG TAB PO (17:00)
[2017-03-10] MEDS: PERCOCET 5MG/325MG TAB PO (05:23)
[2017-03-10 06:53] LABS: HEMATOCRIT 41.1 % (42.0-52.0); HEMOGLOBIN 14.3 g/dl (14.0-18.0); MEAN CORPUSCULAR HGB CONC 34.8 g/dl (32.0-36.5); PLATELET COUNT, AUTOMATED 191 10^3/uL (150-450); RED BLOOD COUNT 4.62 10^6/uL (4.30-6.10); RED CELL DISTRIBUTION WIDTH 12.8 % (11.5-14.5); WHITE BLOOD COUNT 13.2 10^3/uL (4.0-10.0)
[2017-03-10 07:06] LABS: INR 1.26
[2017-03-10 07:23] LABS: ANION GAP 9 MEQ/L (8-16); BLOOD UREA NITROGEN 15 MG/DL (7-18); CALCIUM LEVEL 8.5 MG/DL (8.8-10.2); CARBON DIOXIDE LEVEL 29 MEQ/L (21-32); CHLORIDE LEVEL 101 MEQ/L (98-107); CREATININE FOR GFR 0.95 MG/DL (0.70-1.30); GLOMERULAR FILTRATION RATE > 60.0 (>49); GLUCOSE, FASTING 124 MG/DL (70-100); POTASSIUM SERUM 3.6 MEQ/L (3.5-5.1); SODIUM LEVEL 139 MEQ/L (136-145)
[2017-03-10] MEDS: LOSARTAN 50 MG TAB PO (08:10)
[2017-03-10] MEDS: ATORVASTATIN 20 MG TAB PO (08:10)
[2017-03-10] MEDS: MOM 30ML SUSPENSION UDC PO (08:10)
[2017-03-10] MEDS: SENOKOT S TAB PO (08:10)
[2017-03-10] MEDS: hydroCHLOROthiazide 25 MG TAB PO (08:11)
[2017-03-10] MEDS: amLODIPine 5 MG TAB PO (08:11)
[2017-03-10] MEDS: MIRALAX *UNIT DOSE* 17GM PACKET PO (08:11)
== END 2017-03-10 12:40 | disposition home health service (06) | DRG 470 ==
LOC: M OR 05:59 → M MS5PR 11:00
PROC: 0SRC0J9 Replacement of Right Knee Joint with Synthetic Substitute, Cemented, Open Approach (ICD-10-PCS; principal; 2017-03-08 07:30)
DX: M17.11 Unilateral primary osteoarthritis, right knee (principal); I10 Essential (primary) hypertension; E78.5 Hyperlipidemia, unspecified; G47.33 Obstructive sleep apnea (adult) (pediatric); Z99.89 Dependence on other enabling machines and devices; Z96.652 Presence of left artificial knee joint; Z79.899 Other long term (current) drug therapy

== ENCOUNTER → 2017-03-15 | Outpatient (REF) | payer MEDICARE, OTHER ==
[2017-03-15 14:14] LABS: INR 1.42; PROTHROMBIN TIME 17.7 SECONDS (12.4-14.5)
== END ==
LOC: M LAB REF 13:19
DX: Z79.01 Long term (current) use of anticoagulants (principal)
CPT/HCPCS: 85610

== ENCOUNTER → 2017-03-18 | Outpatient (REF) | payer MEDICARE, OTHER ==
[2017-03-18 12:09] LABS: INR 1.61; PROTHROMBIN TIME 19.6 SECONDS (12.4-14.5)
== END ==
LOC: M SHH 11:15
DX: Z79.01 Long term (current) use of anticoagulants (principal)
CPT/HCPCS: 85610

== ENCOUNTER → 2017-03-22 | Outpatient (REF) | payer MEDICARE, OTHER ==
[2017-03-22 14:06] LABS: INR 1.51; PROTHROMBIN TIME 18.6 SECONDS (12.4-14.5)
== END ==
LOC: M SHH 12:54
DX: Z79.01 Long term (current) use of anticoagulants (principal)
CPT/HCPCS: 85610

== ENCOUNTER → 2017-03-25 | Outpatient (REF) | payer MEDICARE, OTHER ==
[2017-03-25 12:28] LABS: INR 1.51; PROTHROMBIN TIME 18.6 SECONDS (12.4-14.5)
== END ==
LOC: M SHH 11:55
DX: Z79.01 Long term (current) use of anticoagulants (principal)
CPT/HCPCS: 85610

== ENCOUNTER → 2017-03-29 | Outpatient (REF) | payer MEDICARE, OTHER ==
[2017-03-29 13:44] LABS: INR 1.16
== END ==
LOC: M LAB REF 12:45
DX: Z51.81 Encounter for therapeutic drug level monitoring (principal); Z79.01 Long term (current) use of anticoagulants
CPT/HCPCS: 85610

== ENCOUNTER → 2017-04-01 | Outpatient (REF) | payer MEDICARE, OTHER ==
[2017-04-01 12:33] LABS: INR 1.25; PROTHROMBIN TIME 15.9 SECONDS (12.4-14.5)
== END ==
LOC: M SHH 11:51
DX: Z79.01 Long term (current) use of anticoagulants (principal)
CPT/HCPCS: 85610

== ENCOUNTER → 2017-04-05 | Outpatient (REF) | payer MEDICARE, OTHER ==
[2017-04-05 11:49] LABS: INR 1.26; PROTHROMBIN TIME 16.1 SECONDS (12.4-14.5)
== END ==
LOC: M SHH 11:23
DX: Z79.01 Long term (current) use of anticoagulants (principal)
CPT/HCPCS: 85610

== ENCOUNTER → 2017-09-07 | Outpatient (REF) | payer MEDICARE, OTHER ==
[2017-09-08 10:12] LABS: HEPATITIS C VIRUS ABY INDEX 0.3 INDEX (<0.8)
== END ==
LOC: M LAB REF 11:54
DX: Z01.89 Encounter for other specified special examinations (principal)
CPT/HCPCS: 86803

== ENCOUNTER 2017-12-13 07:22 | Day surgery (SDC) | payer MEDICARE, BC, OTHER ==
[2017-12-13] MEDS ORDERED: PROPOFOL 200 MG/20 ML VIAL As Ordered ×2 (07:41→08:49)
[2017-12-13] MEDS ORDERED: LIDOCAINE 2% INJ 100 MG/5 ML SDV (FOR ANES.) As Ordered (07:42)
[2017-12-13] MEDS: NS 1,000 ML IV (07:50)
== END 2017-12-13 09:06 | disposition home or self-care (01) ==
LOC: M OPP 07:22
DX: Z12.11 Encounter for screening for malignant neoplasm of colon (principal); D12.3 Benign neoplasm of transverse colon; K62.7 Radiation proctitis; K64.8 Other hemorrhoids; I10 Essential (primary) hypertension; E78.00 Pure hypercholesterolemia, unspecified; M17.0 Bilateral primary osteoarthritis of knee; Z79.899 Other long term (current) drug therapy; Z86.14 Personal history of Methicillin resistant Staphylococcus aureus infection; Z85.46 Personal history of malignant neoplasm of prostate; Z90.79 Acquired absence of other genital organ(s); Z82.49 Family history of ischemic heart disease and other diseases of the circulatory system; Z80.6 Family history of leukemia; Z80.0 Family history of malignant neoplasm of digestive organs
CPT/HCPCS: 45380

== ENCOUNTER → 2018-03-01 | Outpatient (REF) | payer MEDICARE, OTHER ==
[~2018-03-01] MED LIST changes: +FLAX100012 PO; +HIBI4LIQ EX; +WARF-18 PO; +[UNRECOGNIZED DRUG - CODE] EX
[2018-03-01 11:08] LABS: BASO # 0.1 10^3/uL (0.0-0.2); BASO % 1.2 % (0.0-1.0); EOS # 0.3 10^3/uL (0.0-0.50); EOS % 5.1 % (0.0-3.0); HEMATOCRIT 45.2 % (42.0-52.0); HEMOGLOBIN 15.8 g/dl (13.5-17.5); LYMPH # 1.3 10^3/uL (1.5-4.5); LYMPH % 19.6 % (24.0-44.0); MEAN CORPUSCULAR HEMOGLOBIN 30.9 pg (27.0-33.0); MEAN CORPUSCULAR VOLUME 88.5 fl (80.0-96.0); MONO # 0.8 10^3/uL (0.0-0.8); MONO % 12.7 % (0.0-5.0); NEUTROPHILS # 4.1 10^3/uL (1.8-7.7); NEUTROPHILS % 60.9 % (36.0-66.0); PLATELET COUNT, AUTOMATED 251 10^3/uL (150-450); RED BLOOD COUNT 5.11 10^6/uL (4.30-6.10); WHITE BLOOD COUNT 6.6 10^3/uL (4.0-10.0)
[2018-03-01 11:52] LABS: ERYTHROCYTE SEDIMENTATION RATE 6 mm/hr (0-20)
== END ==
LOC: M LABDRAW1 10:46
PROVIDERS: ATTEND Physician Assistant
DX: Z96.651 Presence of right artificial knee joint (principal)

== ENCOUNTER → 2019-02-09 | Outpatient (CLI) | payer MEDICARE, OTHER ==
--- NOTE | 2019-02-09 09:18 | REP ---
Two-view chest: 02/09, 02/09/2019. Indication: Dyspnea. Comparison: 02/22/2017. Findings: There is no air space consolidation, pleural effusion or pneumothorax. Minimal linear atelectasis is noted within the left lung base. The cardiomediastinal silhouette is unremarkable. Impression: No acute cardiopulmonary process. The left lung base minimal linear atelectasis. Electronically Signed by Koko Anaya DO 02/09/2019 09:09 A
== END ==
LOC: M WUC 08:58
PROVIDERS: ATTEND Internal Medicine
DX: J98.11 Atelectasis (principal)

== ENCOUNTER → 2019-11-23 | Outpatient (CLI) | payer MEDICARE, BC, OTHER ==
--- NOTE | 2019-11-23 14:28 | REP ---
INDICATION: CONTUSION OF THE RIGHT FRONT WALL OF THORAX COMPARISON: Chest x-ray dated 02/09/2019 TECHNIQUE: Frontal view of the chest with multiple views of the right hemithorax. FINDINGS: Frontal view of the chest demonstrates no acute cardiopulmonary process, contusion, effusion, or pneumothorax. Multiple views of the right hemithorax demonstrates no acute rib fracture/injury or pathology. IMPRESSION: Normal rib series. No obvious acute right rib fracture. <Electronically signed by Osmel Sandhu > 11/23/19 [id number]
== END ==
LOC: M WUC 13:56
PROVIDERS: ATTEND Physician Assistant
DX: S20.211A Contusion of right front wall of thorax, initial encounter (principal); X58.XXXA Exposure to other specified factors, initial encounter; Y92.9 Unspecified place or not applicable

== ENCOUNTER → 2021-04-22 | Outpatient (REF) | payer MEDICARE, BC, OTHER ==
[2021-04-22 21:00] LABS: % LABILE ALKALINE PHOSPHATASE 71.97 %
== END ==
LOC: M LAB REF 16:27
PROVIDERS: ATTEND Internal Medicine
DX: R74.8 Abnormal levels of other serum enzymes (principal)

== ENCOUNTER 2023-03-02 06:45 | Day surgery (SDC) | payer MEDICARE, BC, OTHER ==
[~2023-03-02] VITALS: Ht 190.5 cm; Wt 117.7 kg
[~2023-03-02 06:45] MED LIST changes: +CIAL20TA PO; +HYDR-161 PO; -HYDR10TAB PO; -HYZA100T6 PO; +LOSA-536 PO; +NS 1,000 ML IV ONE; +VITA100093 PO
[2023-03-02] MEDS ORDERED: LIDOCAINE 2% 100MG/5ML SDV (FOR ANES.) As Ordered ONE (07:37)
[2023-03-02] MEDS ORDERED: propofoL 200 MG/20 ML VIAL As Ordered ONE ×2 (07:37→07:38)
[2023-03-02 08:09] VITALS: BP 153/66; O2SAT 96
== END 2023-03-02 08:25 | disposition home or self-care (01) ==
LOC: M OPP 06:45
PROVIDERS: ATTEND Internal Medicine Gastroenterology
DX: Z12.11 Encounter for screening for malignant neoplasm of colon (principal); Z86.010 Personal history of colon polyps; D12.0 Benign neoplasm of cecum; D12.4 Benign neoplasm of descending colon; K62.7 Radiation proctitis; K57.30 Diverticulosis of large intestine without perforation or abscess without bleeding; K64.8 Other hemorrhoids; G47.30 Sleep apnea, unspecified; Z99.89 Dependence on other enabling machines and devices; Z79.02 Long term (current) use of antithrombotics/antiplatelets; Z79.899 Other long term (current) drug therapy